=== PATIENT | female | born 1960 | race Caucasian/White ===

== ENCOUNTER 2019-04-28 22:13 | Emergency (ER) | payer SELFPAY ==
[~2019-04-28] VITALS: Ht 170.2 cm; Wt 67.6 kg
[2019-04-28] MEDS ORDERED: fentaNYL PF VIAL 100 MCG/2 ML VIAL ONE (22:26)
[2019-04-28 22:29] LABS: BASO # 0.1 x10^3/uL (0.0-0.2); BASO % 1 % (0-3); EOS % 0 % (0-3); HEMATOCRIT 47.7 % (36.0-47.0); LYMPH # 0.7 x10^3/uL (1.0-4.8); LYMPH % 8 % (24-48); MEAN CORPUSCULAR HEMOGLOBIN 30 pg (25-35); MEAN CORPUSCULAR HGB CONC 34 g/dL (31-37); MEAN CORPUSCULAR VOLUME 90 fL (79-100); MONO # 0.5 x10^3/uL (0.0-1.1); MONO % 5 % (0-9); NEUT # 8.2 x10^3/uL (1.8-7.7); NEUT % 87 % (31-73); PLATELET COUNT 320 x10^3/uL (140-400); RED BLOOD COUNT 5.29 x10^6/uL (3.50-5.40); RED CELL DISTRIBUTION WIDTH 14.1 % (11.5-14.5); WHITE BLOOD COUNT 9.5 x10^3/uL (4.0-11.0)
--- NOTE | 2019-04-28 22:30 | PHYS DOC ---
Adult General Chief Complaint Chief Complaint: SEIZURE HPI HPI 59-year-old female presents to the emergency department with complaints of seizure. She as well complains of right shoulder pain. She states she has a history of seizures however does not take seizure medications. Patient denies any nausea, vomiting, headache or visual change. Patient was postictal with EMS, she is alert and oriented this time. Nothing makes her symptoms worse, nothing makes her symptoms better. Review of Systems Review of Systems Constitutional: Denies fever or chills [] Respiratory: Denies cough or shortness of breath [] Cardiovascular: No additional information not addressed in HPI [] GI: Denies abdominal pain, nausea, vomiting, bloody stools or diarrhea [] : Denies dysuria or hematuria [] Musculoskeletal: right shoulder pain Neurologic: Denies headache, focal weakness or sensory changes [] All other systems were reviewed and found to be within normal limits, except as documented in this note. Current Medications Current Medications Current Medications Medications (Trade) Dose Ordered Sig/James Start Time Stop Time Status Last Admin Dose Admin Fentanyl Citrate (Fentanyl 2ml Vial) 100 mcg STK-MED ONCE 04/28/19 22:26 04/28/19 22:26 DC Propofol 20 ml @ As Directed STK-MED ONCE 04/28/19 22:35 04/28/19 22:35 DC Allergies Allergies Allergies Uncoded Allergies Type Severity Reaction Last Updated Verified FLU SHOT Allergy Unknown 04/28/19 Physical Exam Physical Exam Constitutional: Well developed, well nourished, no acute distress, non-toxic appearance. [] HENT: Normocephalic, atraumatic, bilateral external ears normal, oropharynx moist, no oral exudates, nose normal. [] Eyes: PERRLA, EOMI, conjunctiva normal, no discharge. [] Cardiovascular: Heart rate regular rhythm, no murmur [] Lungs & Thorax: Bilateral breath sounds clear to auscultation [] Abdomen: Bowel sounds normal, soft, no tenderness, no masses, no pulsatile masses. [] Skin: Warm, dry, no erythema, no rash. [] Back: No tenderness, no CVA tenderness. [] Extremities: Tenderness appreciated to her right shoulder, limited ROM 2/2 pain Neurologic: Alert and oriented X 3, no focal deficits noted. [] Psychologic: Affect normal, judgement normal, mood normal. [] Current Patient Data Lab Values Laboratory Tests Test 04/28/19 22:23 White Blood Count 9.5 x10^3/uL (4.0-11.0) Red Blood Count 5.29 x10^6/uL (3.50-5.40) Hemoglobin 16.0 g/dL (12.0-15.5) H Hematocrit 47.7 % (36.0-47.0) H Mean Corpuscular Volume 90 fL (79-100) Mean Corpuscular Hemoglobin 30 pg (25-35) Mean Corpuscular Hemoglobin Concent 34 g/dL (31-37) Red Cell Distribution Width 14.1 % (11.5-14.5) Platelet Count 320 x10^3/uL (140-400) Neutrophils (%) (Auto) 87 % (31-73) H Lymphocytes (%) (Auto) 8 % (24-48) L Monocytes (%) (Auto) 5 % (0-9) Eosinophils (%) (Auto) 0 % (0-3) Basophils (%) (Auto) 1 % (0-3) Neutrophils # (Auto) 8.2 x10^3/uL (1.8-7.7) H Lymphocytes # (Auto) 0.7 x10^3/uL (1.0-4.8) L Monocytes # (Auto) 0.5 x10^3/uL (0.0-1.1) Eosinophils # (Auto) 0.0 x10^3/uL (0.0-0.7) Basophils # (Auto) 0.1 x10^3/uL (0.0-0.2) Segmented Neutrophils % 62 % (35-66) Band Neutrophils % 22 % (0-9) H Lymphocytes % 11 % (24-48) L Monocytes % 4 % (0-10) Eosinophils % 1 % (0-5) Platelet Estimate Adequate (ADEQUATE) Sodium Level 139 mmol/L (136-145) Potassium Level 3.1 mmol/L (3.5-5.1) L Chloride Level 100 mmol/L (98-107) Carbon Dioxide Level 18 mmol/L (21-32) L Anion Gap 21 (6-14) H Blood Urea Nitrogen 24 mg/dL (7-20) H Creatinine 1.5 mg/dL (0.6-1.0) H Estimated GFR (Cockcroft-Gault) 35.4 BUN/Creatinine Ratio 16 (6-20) Glucose Level 197 mg/dL (70-99) H Lactic Acid Level 10.3 mmol/L (0.4-2.0) *H Calcium Level 9.4 mg/dL (8.5-10.1) Total Bilirubin 0.2 mg/dL (0.2-1.0) Aspartate Amino Transferase (AST) 23 U/L (15-37) Alanine Aminotransferase (ALT) 27 U/L (14-59) Alkaline Phosphatase 58 U/L (46-116) Total Protein 8.3 g/dL (6.4-8.2) H Albumin 4.3 g/dL (3.4-5.0) Albumin/Globulin Ratio 1.1 (1.0-1.7) Laboratory Tests 04/28/19 22:23 Laboratory Tests 04/28/19 22:23 EKG EKG [] Radiology/Procedures Radiology/Procedures [facility] [address] [place] [address] IMAGING REPORT Signed PATIENT: CHATA BOOKERCOUNT: [id number] : 1960 LOCATION: ER AGE: 59 SEX: F EXAM STATUS: PRE ER ORD. PHYSICIAN: SPIKE LUCAS MD REASON: seizure/fall with likely dislocated right shoulder PROCEDURE: SHOULDER 2+V RIGHT Examination: 2 views of the right shoulder HISTORY: History of seizure, fall, dislocation COMPARISON: None available FINDINGS: The humerus head is dislocated anteriorly and slightly inferiorly in relation to the glenoid. The acromioclavicular joint grossly appears unremarkable. IMPRESSION: 1. Anterior dislocation of the humerus head in relation to glenoid. Electronically signed by: Yasir Flaherty MD (04/28/2019 10:55 PM) [id number] DICTATED and SIGNED BY: YASIR FLAHERTY MD DATE: 04/28/19 0729 [] Course & Med Decision Making Course & Med Decision Making Pertinent Labs and Imaging studies reviewed. (See chart for details) []59-year-old female presents to the emergency department with complaints of seizure. She as well complains of right shoulder pain. She states she has a history of seizures however does not take seizure medications. Patient denies any nausea, vomiting, headache or visual change. Patient was postictal with EMS, she is alert and oriented this time. Nothing makes her symptoms worse, nothing makes her symptoms better. Labs/Imaging reviewed Patient with history of seizure - lactic acid 10 (consistent with seizure activity) Shoulder xray with evidence of anterior dislocation Discussed findings with patient regarding xray and sedation for procedure See moderate assessment evaluation X-ray Shoulder 3V Interpreted by me: Bones: right shoulder Joints: Anterior dislocation of the glenohumeral joint Foreign body: None Procedural Sedation: Pre-assessment performed. See preceding complete history and physical for details. Time out performed. See sedation documentation for details. Medication(s): Propofol 50mg Complications: No hypoxic or apneic events Recovered without incident. Greater than 15 minutes of face to face time included in sedation and recovery. Shoulder Reduction by me: Anesthesia: Propofol 50mg Location: ER Technique: External rotation, Traction-countertraction Results: Buddhism of normal anatomic positioning Compl: Neurovascularly intact post procedure. Sling Assessment: Neurovascularly intact post sling placement with good fit. Post-reduction X-ray Shoulder 3V Interpreted by me: Bones: Right shoulder Joints: Relocation of previously noted dislocation Foreign body: None Dragon Disclaimer Dragon Disclaimer This electronic medical record was generated, in whole or in part, using a voice recognition dictation system. RISKS/ALTERNATIVES Risks/Alternatives Risks and alternatives of this type of sedation and procedure discussed with: RISK/ALTERNATIVES: Patient H & P ON CHART H & P H & P on chart and reviewed for co-morbid conditions and appropriate labs. H&P ON CHART: Yes STATUS PREG STATUS ASSESSED: N/A MEDS/ALLERGIES REVIEWED Meds/Allergies Reviewed Medications and Allergies including time and route of recently administered narcotics and sedatives. MEDS/ALLERGIES REVIEWED: Yes ASA RATING ASA RATING: I AIRWAY ASSESSMENT Airway Assessment Airway patency, oral function limitations, presence of caps, crowns, dentures, partials, and ability to extend neck assessed. AIRWAY ASSESSMENT: Yes MALLAMPATI SCORE MALLAMPATI SCORE: II PRE-SEDATION ASSESSMENT PRE-SEDATION ASSESSMENT: Yes Departure Departure Impression: Primary Impression: Seizure Additional Impression: Shoulder dislocation Disposition: 01 HOME, SELF-CARE Condition: IMPROVED Patient Instructions: Sedation, Moderate, Adult, Seizure Disorder, Child, Generalized Tonic-Clonic, Shoulder Dislocation, [id number], Shoulder Immobilizer Additional Instructions: Recommend follow up with PCP 3 - 5 days Return to the ER with worsening symptoms, intractable pain, fever, altered mental status Tylenol/Motrin as needed for pain Shoulder reduced in ER, xray confirmed placement Shoulder immobilizer for 48 hours and then released Follow up with PCP as needed Problem Qualifiers Additional Impression: Shoulder dislocation Encounter type: initial encounter Laterality: right Qualified Codes: S43.004A - Unspecified dislocation of right shoulder joint, initial encounter SPIKE LUCAS MD Apr 28, 2019 22:30
[2019-04-28] MEDS ORDERED: PROPOFOL 20 ML IV ONE (22:35)
[2019-04-28 22:40] LABS: CALCIUM 9.4 mg/dL (8.5-10.1); CREATININE 1.5 mg/dL (0.6-1.0); GFR 35.4; POTASSIUM 3.1 mmol/L (3.5-5.1)
[2019-04-28 22:55] LABS: ALBUMIN 4.3 g/dL (3.4-5.0); ALBUMIN/GLOBULIN RATIO 1.1 (1.0-1.7); TOTAL BILIRUBIN 0.2 mg/dL (0.2-1.0); TOTAL PROTEIN 8.3 g/dL (6.4-8.2)
--- NOTE | 2019-04-28 22:58 | RAD ---
Examination: 2 views of the right shoulder HISTORY: History of seizure, fall, dislocation COMPARISON: None available FINDINGS: The humerus head is dislocated anteriorly and slightly inferiorly in relation to the glenoid. The acromioclavicular joint grossly appears unremarkable. IMPRESSION: 1. Anterior dislocation of the humerus head in relation to glenoid. Electronically signed by: Yasir Flaherty MD (04/28/2019 10:55 PM) [facility]
[2019-04-28 23:05] LABS: % BANDS 22 % (0-9); % EOS 1 % (0-5); % LYMPHS 11 % (24-48); % MONOS 4 % (0-10); % SEGS 62 % (35-66); PLT ESTIMATE ADEQUATE (ADEQUATE)
[2019-04-28 23:06] VITALS: BP 135/73
[2019-04-28] MEDS: PROPOFOL 10 MG/ML (20ML) VIAL. IV ONE (23:07)
--- NOTE | 2019-04-28 23:34 | RAD ---
Right shoulder one view. HISTORY: Post reduction Single view the right shoulder shows a humeral heads been reduced into good position. There is irregularity at the humeral head consistent with an impaction fracture. No other fracture is noted. IMPRESSION: 1. Reduction of previous right shoulder dislocation. Electronically signed by: Segundo Rodrigues MD (04/28/2019 11:31 PM) [facility]
[2019-04-29] MEDS: ONDANSETRON PF 4 MG/2 ML VIAL. IVP ONE (00:01)
[2019-04-29 00:03] VITALS: BP 160/93
== END 2019-04-29 00:08 | disposition home or self-care (01) ==
LOC: ER 22:13
DX: S43.014A Anterior dislocation of right humerus, initial encounter (principal); R56.9 Unspecified convulsions; X58.XXXA Exposure to other specified factors, initial encounter; Y93.89 Activity, other specified; Y92.89 Other specified places as the place of occurrence of the external cause; Y99.8 Other external cause status
CPT/HCPCS: 23650; 36415; 73020; 73030; 80053; 83605; 85007; 85025; 96374; 99285; J2405; J2704

== ENCOUNTER 2019-04-29 15:45 | Emergency (ER) | payer SELFPAY ==
[~2019-04-29] VITALS: Ht 167.6 cm; Wt 67.6 kg
--- NOTE | 2019-04-29 16:29 | PHYS DOC ---
Past Medical History Past Medical History: Seizure, Other Additional Past Medical Histor: HEART ATTACK (REY MACK APRN) Past Surgical History: (REY MACK APRN) Alcohol Use: Occasionally Drug Use: Marijuana (REY MACK APRN) Adult General Chief Complaint Chief Complaint: SHOUDLER HPI HPI 59-year-old female presents to the emergency department with R shoulder pain. She was evaluated for this same complaint yesterday as was found to have a dislocated shoulder. The shoulder was reduced and then she took off the shoulder immobilizer and the shoulder started hurting again. She also states that she had a seizure yesterday. She reports 10/10 pain at this time. (REY MCAK APRN) Review of Systems Review of Systems Constitutional: Denies fever or chills [] Eyes: Denies change in visual acuity, redness, or eye pain [] Cardiovascular: No additional information not addressed in HPI [] GI: Reports nausea, Denies abdominal pain, vomiting, bloody stools or diarrhea [] : Denies dysuria or hematuria. Musculoskeletal: Reports R shoulder pain. Integument: Denies rash or skin lesions [] Neurologic: Denies headache, focal weakness or sensory changes [] Endocrine: Denies polyuria or polydipsia [] Complete systems were reviewed and found to be within normal limits, except as documented in this note. (REY MACK APRN) Current Medications Current Medications Current Medications Medications (Trade) Dose Ordered Sig/James Start Time Stop Time Status Last Admin Dose Admin Ketamine HCl (Ketamine) 20 mg 1X STAT 04/29/19 16:45 04/29/19 16:46 DC 04/29/19 17:01 20 MG Morphine Sulfate (Morphine Sulfate) 5 mg 1X STAT 04/29/19 17:53 04/29/19 17:55 DC Ondansetron HCl (Zofran) 4 mg 1X STAT 04/29/19 17:53 04/29/19 17:55 DC Propofol (Diprivan) 50 mg 1X STAT 04/29/19 17:01 04/29/19 17:03 DC 04/29/19 17:29 50 MG Sodium Chloride 1,000 ml @ 1,000 mls/hr 1X ONCE 04/29/19 17:00 04/29/19 17:59 04/29/19 16:58 1,000 MLS/HR (CAMARILLO,REMINGTON DO) Allergies Allergies Allergies Coded Allergies Type Severity Reaction Last Updated Verified Influenza Virus Vaccines Allergy Intermediate 04/29/19 Yes Uncoded Allergies Type Severity Reaction Last Updated Verified FLU SHOT Allergy Unknown 04/28/19 (REMINGTON CAMARILLO DO) Physical Exam Physical Exam Constitutional: Well developed, well nourished, no acute distress, non-toxic appearance. [] HENT: Normocephalic, atraumatic, bilateral external ears normal, oropharynx moist, no oral exudates, nose normal. [] Eyes: PERRLA, EOMI, conjunctiva normal, no discharge. [] Neck: Normal range of motion, no tenderness, supple, no stridor. [] Cardiovascular:Heart rate regular rhythm, no murmur [] Lungs & Thorax: Bilateral breath sounds clear to auscultation [] Abdomen: Bowel sounds normal, soft, no tenderness, no masses, no pulsatile masses. [] Skin: Warm, dry, no erythema, no rash. [] Extremities: Tenderness to R shoulder with reduced range of motion. The patient has anterior edema Neurologic: Alert and oriented X 3, normal motor function, normal sensory function, no focal deficits noted. [] Psychologic: Affect normal, judgement normal, mood normal. [] (REY MACK APRN) Current Patient Data Vital Signs Vital Signs Date Time Temp Pulse Resp B/P (MAP) Pulse Ox O2 Delivery O2 Flow Rate FiO2 04/29/19 16:51 60 189/97 (127) 99 Room Air 04/29/19 16:25 98.1 17 98.1 (REMINGTON CAMARILLO DO) EKG EKG [] (REY MACK APRN) Radiology/Procedures Radiology/Procedures [][facility] [address] [place] [address] IMAGING REPORT Signed PATIENT: CHATA BOOKERCOUNT: [id number] : 1960 LOCATION: ER AGE: 59 SEX: F EXAM STATUS: PRE ER ORD. PHYSICIAN: REY MACK APRN REASON: right shoulder pain PROCEDURE: SHOULDER 2+V RIGHT EXAM: Right shoulder, 3 views. HISTORY: Pain. COMPARISON: 04/28/2019 FINDINGS: 3 views of the right shoulder obtained. There is a recurrent anterior right shoulder dislocation. The acromioclavicular joint is intact. IMPRESSION: Right shoulder dislocation. Follow-up following closed reduction to confirm appropriate alignment and assess for a possible concomitant Hill-Sachs or Bankart fracture. Electronically signed by: Zee Cortes MD (04/29/2019 4:46 PM) [place] [id number] DICTATED and SIGNED BY: ZEE CORTES MD DATE: 04/29/191645 (REY MACK APRN) Course & Med Decision Making Course & Med Decision Making Pertinent Labs and Imaging studies reviewed. (See chart for details) Will get x-ray and give supportive care. Discussed with Dr. Camarillo who will manage the conscious sedation. Shoulder was reduced. Will d/c home. (REY MACK APRN) Dragon Disclaimer Dragon Disclaimer This electronic medical record was generated, in whole or in part, using a voice recognition dictation system. (REY MACK APRN) Departure Departure Impression: Primary Impression: Anterior shoulder dislocation Disposition: HOME, SELF-CARE Condition: STABLE Referrals: NO PCP (PCP) HALI JOSHI MD Patient Instructions: Shoulder Dislocation Additional Instructions: Thank you for visiting [facility]. We appreciate you trusting us with your care. If any additional problems come up don't hesitate to return to visit us. Please follow up with your primary care provider so they can plan additional care if needed and know about the problem that you had. If symptoms worsen come back to the Emergency Department. Any concerning symptoms that start such as chest pain, shortness of air, weakness or numbness on one side of the body, running high fevers or any other concerning symptoms return to the ER. Please leave shoulder immobilize on and follow up with orthopedics. PROCEDURE Procedure Procedural sedation: Moderate Indication: Right shoulder relocation Anesthesia used: 50 mg propofol Performed by: Dr. Remington Camarillo H&P performed by this provider be acutely prior to procedure. ASA classification 3, Mallampati 2. Patient was connected to cardiovascular AND pulse oximetry monitors tarry therapy was bedside. 50 mg of propofol was given through a peripheral IV. When the patient achieved sufficient level of anes thesia, the shoulder is relocated by Rey Mack APRN. Patient did not have any apneic or hypoxic episodes or rated the procedure well without complication. patient was monitored in the until the effects of anesthesia wore off. (REMINGTON CAMARILLO DO) Joint Reduction Procedure Joint Indication: Joint dislocation Consent: Consent was obtained. Procedure: The pre-reduction exam showed distal perfusion and neurologic function to be normal.. The patient was placed in the appropriate position. Anesthesia/pain control was given by Dr. Camarillo with Propofol. Reduction of the R shoulder was performed by external rotation. Post reduction films were obtained and revealed satisfactory reduction. A post-reduction exam revealed distal perfusion and neurologic function to be normal. The affected area was immobilized with shoulder immobilizer. The patient tolerated the procedure well. Complications: none. (REY MACK APRN) Joint Indication: Joint dislocation Consent: Consent was obtained. Procedure: The pre-reduction exam showed distal perfusion and neurologic functi on to be normal.. The patient was placed in the appropriate position. Anesthesia/pain control [ANESTHESIA]. Reduction of the [LOCATION] was performed by [METHOD]. Post reduction films were obtained and revealed satisfactory reduction. A post-reduction exam revealed distal perfusion and neurologic function to be normal. The affected area was immobilized with [IMMOB TYPE]. The patient tolerated the procedure well. Complications: none. (REMINGTON CAMARILLO DO) Problem Qualifiers Primary Impression: Anterior shoulder dislocation Encounter type: initial encounter Laterality: right Qualified Codes: S43.014A - Anterior dislocation of right humerus, initial encounter REY MACK APRN Apr 29, 2019 16:29 REMINGTON CAMARILLO DO Apr 29, 2019 17:43
[2019-04-29] MEDS ORDERED: KETAMINE HCL 500 MG/10 ML VIAL. IV STA (16:42)
[2019-04-29] MEDS ORDERED: KETAMINE HCL IN NACL, ISO-OSM 50 MG/5 ML SYRINGE IV STA (16:45)
--- NOTE | 2019-04-29 16:49 | RAD ---
EXAM: Right shoulder, 3 views. HISTORY: Pain. COMPARISON: 04/28/2019 FINDINGS: 3 views of the right shoulder obtained. There is a recurrent anterior right shoulder dislocation. The acromioclavicular joint is intact. IMPRESSION: Right shoulder dislocation. Follow-up following closed reduction to confirm appropriate alignment and assess for a possible concomitant Hill-Sachs or Bankart fracture. Electronically signed by: Zee Cerna MD (04/29/2019 4:46 PM) [place] [id number]
[2019-04-29] MEDS ORDERED: ONDANSETRON PF 4 MG/2 ML VIAL. IV STA ×2 (16:54→17:53)
[2019-04-29] MEDS ORDERED: IV NORMAL SALINE 1000ML BAG 1,000 ML IV ONE (17:00)
[2019-04-29] MEDS ORDERED: PROPOFOL 10 MG/ML (20ML) VIAL. IV STA (17:01)
[2019-04-29 17:14] VITALS: BP 187/108
[2019-04-29] MEDS ORDERED: MORPHINE SULFATE 10 MG/ML VIAL. IV STA (17:53)
--- NOTE | 2019-04-29 18:02 | RAD ---
Examination: 2 views of the right shoulder HISTORY: History of postreduction COMPARISON: Same day exam Findings/ impression: The humerus head is now identified within the glenoid, status post reduction. Mild degenerative changes identified in the acromioclavicular joint, glenohumeral joint. Probable Hill-Sachs defect identified in the posterior lateral humerus head. Electronically signed by: Yasir Flaherty MD (04/29/2019 5:58 PM) [facility]
== END 2019-04-29 19:00 | disposition home or self-care (01) ==
LOC: ER 15:45
DX: S43.014A Anterior dislocation of right humerus, initial encounter (principal); F12.90 Cannabis use, unspecified, uncomplicated; Z98.890 Other specified postprocedural states; I25.2 Old myocardial infarction; Z88.7 Allergy status to serum and vaccine
CPT/HCPCS: 23650; 73030; 96374; 96375; 96376; 99285; J2270; J2405; J2704; J7030